=== PATIENT | male | born 1965 | race Caucasian/White ===

== ENCOUNTER → 2018-01-07 | Outpatient (CLI) | payer OTHER ==
[~2018-01-07] MED LIST: ASPI-496 PO; ATOR20TA9 PO; FEXO1TAB29 PO; VALS1TAB26 PO
== END | disposition home or self-care (01) ==
LOC: RAD 10:13
PROVIDERS: ATTEND Colon & Rectal Surgery
DX: C18.9 Malignant neoplasm of colon, unspecified (principal)
CPT/HCPCS: 71260; 74177

== ENCOUNTER → 2018-01-11 | Outpatient (CLI) | payer OTHER ==
[~2018-01-11] MED LIST changes: +FEXO180T72 PO
[2018-01-11 09:26] LABS: BASOPHILS # (AUTO) 0.02 x10^3/uL (0-0.1); BASOPHILS % (AUTO) 0 % (0-1); EOSINOPHILS # (AUTO) 0.25 x10^3/uL (0-0.4); EOSINOPHILS % (AUTO) 5 % (1-7); LYMPHOCYTES # (AUTO) 0.81 x10^3/uL (1-3.4); LYMPHOCYTES % (AUTO) 17 % (22-44); MD NO; MEAN CORPUSCULAR HEMOGLOBIN 31.9 pg (27.5-34.5); MEAN CORPUSCULAR HGB CONC 34.6 g/dL (33.2-36.2); MEAN CORPUSCULAR VOLUME 92.3 fL (81-97); MEAN PLATELET VOLUME 8.7 fL (7.4-10.4); MONOCYTES # (AUTO) 0.48 x10^3/uL (0.2-0.8); MONOCYTES % (AUTO) 10 % (2-9); NEUTROPHILS # (AUTO) 3.19 x10^3/uL (1.8-6.8); NEUTROPHILS % (AUTO) 67 % (42-75); PLATELET COUNT 275 x10^3/uL (130-400); RED BLOOD COUNT 4.91 x10^6/uL (4.38-5.82); RED CELL DISTRIBUTION WIDTH 12.2 % (9.4-14.8)
[2018-01-11 09:38] LABS: ALANINE AMINOTRANSFERASE 32 U/L (12-78); ALBUMIN 4.1 g/dL (3.4-5.0); ANION GAP 6 mmol/L (5-15); CALCIUM 9.1 mg/dL (8.5-10.1); CHLORIDE 99 mmol/L (98-107)
[2018-01-11 09:41] LABS: ALKALINE PHOSPHATASE 65 U/L (45-117); BILIRUBIN,TOTAL 1.7 mg/dL (0.2-1.0); CREATININE 1.13 mg/dL (0.7-1.3); TOTAL PROTEIN 7.4 g/dL (6.4-8.2)
== END | disposition home or self-care (01) ==
LOC: STAR 08:31
PROVIDERS: ATTEND Colon & Rectal Surgery
DX: Z01.818 Encounter for other preprocedural examination (principal)
CPT/HCPCS: 36415; 80053; 85025; 93005

== ENCOUNTER 2018-01-17 06:05 | Inpatient (IN) | payer OTHER ==
[~2018-01-17] VITALS: Ht 177.8 cm; Wt 88.7 kg
[2018-01-17] MEDS ORDERED: BUPIVACAINE/PF 0.5% ONE ×2 (06:44→08:28)
[2018-01-17] MEDS ORDERED: EPINEPHRINE 1 MG/ML, 1ML ONE (06:44)
[2018-01-17] MEDS ORDERED: INDOCYANINE GREEN 25 MG VIAL ONE (06:44)
[2018-01-17] MEDS ORDERED: FENTANYL PF 250 MCG/5ML ONE (06:56)
[2018-01-17] MEDS ORDERED: MIDAZOLAM 1 MG/ML, 2ML ONE (06:56)
[2018-01-17] MEDS ORDERED: PROPOFOL 10 MG/ML, 20ML ONE (06:57)
[2018-01-17] MEDS ORDERED: ROCURONIUM 10MG/ML,5ML ONE ×2 (06:57→08:30)
[2018-01-17] MEDS ORDERED: GABAPENTIN 300 MG CAPSULE PO ONE (07:00)
[2018-01-17] MEDS ORDERED: OxyconTIN ER 10 MG TAB.ER PO ONE (07:00)
[2018-01-17] MEDS ORDERED: FAMOTIDINE 20 MG TABLET PO ONE (07:00)
[2018-01-17] MEDS ORDERED: ACETAMINOPHEN 500 MG TABLET PO ONE (07:00)
[2018-01-17] MEDS ORDERED: LACTATED RINGERS 1,000 ML IV SCH ×2 (07:08→13:30)
[2018-01-17] MEDS ORDERED: CEFOTETAN 2 GM ONE (07:25)
[2018-01-17] MEDS ORDERED: BUPIVACAINE/PF-EPI 0.5% 1:200K INFIL ONE (08:17)
[2018-01-17] MEDS ORDERED: DEXAMETHASONE 4 MG/ML, 1ML ONE (08:30)
[2018-01-17] MEDS ORDERED: ONDANSETRON 2MG/ML, 2ML ONE (08:30)
[2018-01-17] MEDS ORDERED: GLYCOPYRROLATE 0.2MG/1ML, 5ML ONE (09:26)
[2018-01-17] MEDS ORDERED: NEOSTIGMINE 1 MG/ML, 10ML ONE (09:26)
[2018-01-17] MEDS ORDERED: PROMETHAZINE 12.5 MG SUPP PR PRN (09:30)
[2018-01-17] MEDS ORDERED: MEPERIDINE/PF 25MG/0.5ML IVPush PRN (09:30)
[2018-01-17] MEDS ORDERED: ONDANSETRON ODT 8 MG PO PRN (09:30)
[2018-01-17] MEDS ORDERED: LABETALOL 5MG/ML, 20ML IV PRN (09:30)
[2018-01-17] MEDS ORDERED: OXYcodone 5 MG/5 ML ORAL.SOL UDC PO PRN (09:30)
[2018-01-17] MEDS ORDERED: HYDROmorphone 1 MG/ML, 1ML IV PRN (09:30)
[2018-01-17] MEDS ORDERED: hydrALAzine 20 MG/ML, 1ML IV PRN (09:30)
[2018-01-17] MEDS ORDERED: FENTANYL PF 100 MCG/2ML ONE (09:51)
[2018-01-17] MEDS ORDERED: HYDROmorphone 2 MG/ML, 1ML ONE (09:51)
[2018-01-17] MEDS: FENTANYL PF 100 MCG/2ML IV PRN ×2 (09:55→10:00)
[2018-01-17] MEDS ORDERED: ONDANSETRON ODT 8 MG ONE (10:03)
[2018-01-17] MEDS ORDERED: OXYcodone IR 5MG TABLET ONE (13:20)
[2018-01-17] MEDS ORDERED: ONDANSETRON 2MG/ML, 2ML IVPush PRN (13:30)
[2018-01-17] MEDS ORDERED: ONDANSETRON 2MG/ML, 2ML IV PRN (13:30)
[2018-01-17 13:34] VITALS: BP 139/88
[2018-01-17] MEDS: ACETAMINOPHEN 500 MG TABLET PO SCH ×2 (13:45→19:45)
[2018-01-17] MEDS: KETOROLAC 30 MG/1 ML IV SCH ×2 (13:46→19:45)
[2018-01-17] MEDS ORDERED: DEXAMETHASONE 4 MG/ML, 1ML IVPush PRN (14:00)
[2018-01-17] MEDS ORDERED: MORPHINE SULFATE 4 MG/ML, 1ML IV PRN (14:00)
[2018-01-17] MEDS ORDERED: DIPHENHYDRAMINE 25 MG CAPSULE PO PRN (14:00)
[2018-01-17] MEDS ORDERED: DIPHENHYDRAMINE 50 MG/ML, 1ML IVPush PRN (14:00)
[2018-01-17] MEDS ORDERED: LORazepam 2 MG/ML, 1ML IVPush PRN (14:00)
[2018-01-17] MEDS: OXYcodone IR 5MG TABLET PO PRN (16:27)
[2018-01-17 19:36] VITALS: BP 116/73
[2018-01-18 00:39] VITALS: BP 139/62
[2018-01-18] MEDS: ACETAMINOPHEN 500 MG TABLET PO SCH ×4 (00:56→20:21)
[2018-01-18] MEDS: KETOROLAC 30 MG/1 ML IV SCH ×4 (00:57→20:19)
[2018-01-18 04:23] VITALS: BP 115/68
[2018-01-18 05:08] LABS: BASOPHILS # (AUTO) 0.01 x10^3/uL (0-0.1); BASOPHILS % (AUTO) 0 % (0-1); EOSINOPHILS # (AUTO) 0.07 x10^3/uL (0-0.4); EOSINOPHILS % (AUTO) 1 % (1-7); LYMPHOCYTES # (AUTO) 0.68 x10^3/uL (1-3.4); LYMPHOCYTES % (AUTO) 6 % (22-44); MD NO; MEAN CORPUSCULAR HGB CONC 34.3 g/dL (33.2-36.2); MEAN CORPUSCULAR VOLUME 93.1 fL (81-97); MEAN PLATELET VOLUME 8.6 fL (7.4-10.4); MONOCYTES # (AUTO) 1.15 x10^3/uL (0.2-0.8); MONOCYTES % (AUTO) 9 % (2-9); NEUTROPHILS # (AUTO) 10.28 x10^3/uL (1.8-6.8); NEUTROPHILS % (AUTO) 84 % (42-75); PLATELET COUNT 266 x10^3/uL (130-400); RED BLOOD COUNT 4.27 x10^6/uL (4.38-5.82); RED CELL DISTRIBUTION WIDTH 12.3 % (9.4-14.8)
[2018-01-18 05:11] LABS: ANION GAP 9 mmol/L (5-15); CALCIUM 8.4 mg/dL (8.5-10.1); CHLORIDE 89 mmol/L (98-107)
[2018-01-18 05:13] LABS: CREATININE 0.94 mg/dL (0.7-1.3)
[2018-01-18 06:49] VITALS: BP 114/68
[2018-01-18] MEDS: ENOXAPARIN 40 MG/0.4 ML SQ SCH (10:06)
[2018-01-18] MEDS: SODIUM CHLORIDE 0.9% 1,000 ML IV SCH (10:06)
[2018-01-18 13:06] LABS: ANION GAP 11 mmol/L (5-15); CALCIUM 7.9 mg/dL (8.5-10.1); CHLORIDE 84 mmol/L (98-107); CREATININE 1.21 mg/dL (0.7-1.3)
[2018-01-18 13:34] VITALS: BP 121/76
[2018-01-18] MEDS ORDERED: SODIUM CHLORIDE 3% 100 ML IV ONE (14:30)
[2018-01-19] MEDS: CALCIUM CARBONATE 500 MG TAB.CHEW PO PRN ×3 (00:09→20:37)
[2018-01-19] MEDS: ACETAMINOPHEN 500 MG TABLET PO SCH ×4 (02:01→20:48)
[2018-01-19] MEDS: KETOROLAC 30 MG/1 ML IV SCH ×3 (02:01→13:56)
[2018-01-19 04:25] LABS: BASOPHILS # (AUTO) 0.03 x10^3/uL (0-0.1); BASOPHILS % (AUTO) 0 % (0-1); EOSINOPHILS % (AUTO) 2 % (1-7); LYMPHOCYTES # (AUTO) 0.84 x10^3/uL (1-3.4); LYMPHOCYTES % (AUTO) 10 % (22-44); MD NO; MEAN CORPUSCULAR HGB CONC 34.5 g/dL (33.2-36.2); MEAN CORPUSCULAR VOLUME 92.9 fL (81-97); MEAN PLATELET VOLUME 8.6 fL (7.4-10.4); MONOCYTES # (AUTO) 0.77 x10^3/uL (0.2-0.8); MONOCYTES % (AUTO) 9 % (2-9); NEUTROPHILS # (AUTO) 6.47 x10^3/uL (1.8-6.8); NEUTROPHILS % (AUTO) 78 % (42-75); PLATELET COUNT 233 x10^3/uL (130-400); RED BLOOD COUNT 3.61 x10^6/uL (4.38-5.82); RED CELL DISTRIBUTION WIDTH 12.5 % (9.4-14.8)
[2018-01-19 04:30] LABS: ANION GAP 7 mmol/L (5-15); CALCIUM 8.2 mg/dL (8.5-10.1); CHLORIDE 93 mmol/L (98-107); CREATININE 0.93 mg/dL (0.7-1.3)
[2018-01-19] MEDS: SODIUM CHLORIDE 0.9% 1,000 ML IV SCH (05:05)
[2018-01-19] MEDS: ENOXAPARIN 40 MG/0.4 ML SQ SCH (09:17)
[2018-01-19 12:19] LABS: ANION GAP 5 mmol/L (5-15); CALCIUM 8.1 mg/dL (8.5-10.1); CHLORIDE 94 mmol/L (98-107)
[2018-01-19] MEDS: OXYcodone IR 5MG TABLET PO PRN ×3 (12:35→21:15)
[2018-01-19] MEDS ORDERED: OXYC-302 PO ×2 (14:50→14:51)
[2018-01-19] MEDS ORDERED: SODIUM CHLORIDE 0.9% 1,000ML IVBOLUS ONE (17:30)
[2018-01-19 18:07] LABS: BASOPHILS # (AUTO) 0.02 x10^3/uL (0-0.1); BASOPHILS % (AUTO) 0 % (0-1); EOSINOPHILS # (AUTO) 0.11 x10^3/uL (0-0.4); EOSINOPHILS % (AUTO) 1 % (1-7); LYMPHOCYTES # (AUTO) 0.61 x10^3/uL (1-3.4); LYMPHOCYTES % (AUTO) 5 % (22-44); MD NO; MEAN CORPUSCULAR HEMOGLOBIN 32.8 pg (27.5-34.5); MEAN CORPUSCULAR HGB CONC 34.9 g/dL (33.2-36.2); MEAN CORPUSCULAR VOLUME 93.9 fL (81-97); MEAN PLATELET VOLUME 8.6 fL (7.4-10.4); MONOCYTES # (AUTO) 1.01 x10^3/uL (0.2-0.8); MONOCYTES % (AUTO) 8 % (2-9); NEUTROPHILS # (AUTO) 10.85 x10^3/uL (1.8-6.8); NEUTROPHILS % (AUTO) 86 % (42-75); PLATELET COUNT 242 x10^3/uL (130-400); RED BLOOD COUNT 3.21 x10^6/uL (4.38-5.82); RED CELL DISTRIBUTION WIDTH 12.4 % (9.4-14.8)
[2018-01-20] MEDS: SODIUM CHLORIDE FLUSH 10ML SYR IVF SCH ×3 (00:01→22:04)
[2018-01-20] MEDS: ACETAMINOPHEN 500 MG TABLET PO SCH ×4 (01:00→22:03)
[2018-01-20] MEDS: CALCIUM CARBONATE 500 MG TAB.CHEW PO PRN (02:15)
[2018-01-20 04:24] LABS: BASOPHILS # (AUTO) 0.03 x10^3/uL (0-0.1); BASOPHILS % (AUTO) 0 % (0-1); EOSINOPHILS # (AUTO) 0.12 x10^3/uL (0-0.4); EOSINOPHILS % (AUTO) 2 % (1-7); LYMPHOCYTES # (AUTO) 0.73 x10^3/uL (1-3.4); LYMPHOCYTES % (AUTO) 9 % (22-44); MD NO; MEAN CORPUSCULAR HEMOGLOBIN 32.5 pg (27.5-34.5); MEAN CORPUSCULAR HGB CONC 34.5 g/dL (33.2-36.2); MEAN CORPUSCULAR VOLUME 94.2 fL (81-97); MEAN PLATELET VOLUME 8.5 fL (7.4-10.4); MONOCYTES % (AUTO) 13 % (2-9); NEUTROPHILS # (AUTO) 5.93 x10^3/uL (1.8-6.8); NEUTROPHILS % (AUTO) 76 % (42-75); PLATELET COUNT 226 x10^3/uL (130-400); RED BLOOD COUNT 2.62 x10^6/uL (4.38-5.82); RED CELL DISTRIBUTION WIDTH 12.6 % (9.4-14.8)
[2018-01-20 08:42] LABS: ANION GAP 5 mmol/L (5-15); CALCIUM 7.8 mg/dL (8.5-10.1); CHLORIDE 95 mmol/L (98-107); CREATININE 0.85 mg/dL (0.7-1.3)
[2018-01-20 09:23] VITALS: BP 130/73
[2018-01-20 09:40] VITALS: BP 125/74
[2018-01-20] MEDS ORDERED: PROPOFOL 100 ML IV ONE (10:15)
[2018-01-20] MEDS ORDERED: NOREPINEPHRINE 1 MG/ML, 4ML ONE (10:19)
[2018-01-20] MEDS ORDERED: MIDAZOLAM 1 MG/ML, 2ML IVPush ONE (10:30)
[2018-01-20] MEDS ORDERED: LORazepam 2 MG/ML, 1ML IVPush ONE (10:30)
[2018-01-20] MEDS ORDERED: NOREPINEPHRINE 4 MG in SODIUM CHLORIDE 0.9% 246 ML IV PRN ×2 (10:30→11:21)
[2018-01-20 11:23] LABS: BASOPHILS % (AUTO) 0 % (0-1); EOSINOPHILS # (AUTO) 0.05 x10^3/uL (0-0.4); EOSINOPHILS % (AUTO) 1 % (1-7); LYMPHOCYTES # (AUTO) 0.66 x10^3/uL (1-3.4); LYMPHOCYTES % (AUTO) 8 % (22-44); MD NO; MEAN CORPUSCULAR HEMOGLOBIN 32.2 pg (27.5-34.5); MEAN CORPUSCULAR HGB CONC 34.3 g/dL (33.2-36.2); MEAN CORPUSCULAR VOLUME 93.8 fL (81-97); MEAN PLATELET VOLUME 8.5 fL (7.4-10.4); MONOCYTES # (AUTO) 0.33 x10^3/uL (0.2-0.8); MONOCYTES % (AUTO) 4 % (2-9); NEUTROPHILS # (AUTO) 7.68 x10^3/uL (1.8-6.8); NEUTROPHILS % (AUTO) 88 % (42-75); PLATELET COUNT 231 x10^3/uL (130-400); RED BLOOD COUNT 2.65 x10^6/uL (4.38-5.82); RED CELL DISTRIBUTION WIDTH 12.9 % (9.4-14.8)
[2018-01-20] MEDS ORDERED: SENNA/DOCUSATE TABLET NG PRN (11:30)
[2018-01-20] MEDS ORDERED: SODIUM CHLORIDE 0.9% 1,000ML IV SCH (11:30)
[2018-01-20] MEDS ORDERED: SENNOSIDES 8.8 MG/5 ML ORAL SOL NG PRN (11:30)
[2018-01-20] MEDS ORDERED: LACTULOSE 20 GM/30 ML UDC NG PRN (11:30)
[2018-01-20] MEDS ORDERED: FENTANYL PF 100 MCG/2ML IVPush PRN (11:30)
[2018-01-20] MEDS ORDERED: LIDOCAINE-MPF 1%, 2ML ENDO PRN (11:30)
[2018-01-20] MEDS ORDERED: ALBUTEROL/IPRATROPIUM 2.5MG/0.5MG, 3 ML INLINE SCH (11:30)
[2018-01-20] MEDS ORDERED: PHARMACY MAY ADJ FOR RENAL FX MC SCH (11:30)
[2018-01-20] MEDS ORDERED: BISACODYL 10 MG SUPP PR PRN (11:30)
[2018-01-20] MEDS ORDERED: MIDAZOLAM 1 MG/ML, 2ML IVPush PRN (11:30)
[2018-01-20 11:32] LABS: INTERNATIONAL NORMALIZED RATIO 1.16 (0.93-1.1)
[2018-01-20 11:37] LABS: ANION GAP 12 mmol/L (5-15); CALCIUM 7.6 mg/dL (8.5-10.1); CHLORIDE 96 mmol/L (98-107); CREATININE 0.98 mg/dL (0.7-1.3)
[2018-01-20 11:38] LABS: ALANINE AMINOTRANSFERASE 38 U/L (12-78); ALBUMIN 2.6 g/dL (3.4-5.0)
[2018-01-20 11:41] LABS: ALKALINE PHOSPHATASE 45 U/L (45-117); BILIRUBIN,TOTAL 1.3 mg/dL (0.2-1.0)
[2018-01-20 12:10] LABS: MEAN CORPUSCULAR HEMOGLOBIN 32.2 pg (27.5-34.5); MEAN CORPUSCULAR HGB CONC 34.8 g/dL (33.2-36.2); MEAN CORPUSCULAR VOLUME 92.7 fL (81-97); MEAN PLATELET VOLUME 8.8 fL (7.4-10.4); PLATELET COUNT 234 x10^3/uL (130-400); RED BLOOD COUNT 2.71 x10^6/uL (4.38-5.82); RED CELL DISTRIBUTION WIDTH 12.6 % (9.4-14.8)
[2018-01-20] MEDS ORDERED: POTASSIUM CHLORIDE 10% 40 MEQ/30 ML UDC PO ONE (12:30)
[2018-01-20] MEDS: SODIUM CHLORIDE 0.9% 1,000 ML IV SCH (14:39)
[2018-01-20] MEDS: PANTOPRAZOLE 40 MG IV IV SCH (14:54)
[2018-01-20] MEDS ORDERED: ROCURONIUM 10MG/ML,5ML ONE (16:21)
[2018-01-20] MEDS ORDERED: MIDAZOLAM 1 MG/ML, 5ML ONE (16:21)
[2018-01-20 17:25] LABS: MEAN CORPUSCULAR HEMOGLOBIN 32.7 pg (27.5-34.5); MEAN CORPUSCULAR HGB CONC 35.1 g/dL (33.2-36.2); MEAN CORPUSCULAR VOLUME 93.2 fL (81-97); MEAN PLATELET VOLUME 8.6 fL (7.4-10.4); PLATELET COUNT 229 x10^3/uL (130-400); RED BLOOD COUNT 2.58 x10^6/uL (4.38-5.82); RED CELL DISTRIBUTION WIDTH 12.6 % (9.4-14.8)
[2018-01-20] MEDS: PROPOFOL 100 ML IV PRN (17:43)
[2018-01-20 20:53] LABS: MEAN CORPUSCULAR HGB CONC 34.2 g/dL (33.2-36.2); MEAN CORPUSCULAR VOLUME 93.5 fL (81-97); MEAN PLATELET VOLUME 8.7 fL (7.4-10.4); PLATELET COUNT 230 x10^3/uL (130-400); RED BLOOD COUNT 2.51 x10^6/uL (4.38-5.82); RED CELL DISTRIBUTION WIDTH 12.9 % (9.4-14.8)
[2018-01-20] MEDS: OXYcodone IR 5MG TABLET PO PRN (22:04)
[2018-01-20] MEDS ORDERED: ACETAMINOPHEN 500 MG TABLET PO PRN (23:30)
[2018-01-21] VITALS (11 sets, daily range): BP systolic 132–159; BP diastolic 80–100
[2018-01-21 00:45] LABS: MEAN CORPUSCULAR HEMOGLOBIN 33.3 pg (27.5-34.5); MEAN CORPUSCULAR HGB CONC 35.1 g/dL (33.2-36.2); MEAN CORPUSCULAR VOLUME 94.8 fL (81-97); MEAN PLATELET VOLUME 8.8 fL (7.4-10.4); PLATELET COUNT 215 x10^3/uL (130-400); RED BLOOD COUNT 2.41 x10^6/uL (4.38-5.82); RED CELL DISTRIBUTION WIDTH 12.8 % (9.4-14.8)
[2018-01-21] MEDS: PROPOFOL 100 ML IV PRN (00:58)
[2018-01-21] MEDS: OXYcodone IR 5MG TABLET PO PRN ×3 (01:15→16:39)
[2018-01-21 03:55] LABS: MEAN CORPUSCULAR HEMOGLOBIN 32.4 pg (27.5-34.5); MEAN CORPUSCULAR HGB CONC 34.4 g/dL (33.2-36.2); MEAN CORPUSCULAR VOLUME 94.3 fL (81-97); MEAN PLATELET VOLUME 8.8 fL (7.4-10.4); PLATELET COUNT 201 x10^3/uL (130-400); RED BLOOD COUNT 2.28 x10^6/uL (4.38-5.82); RED CELL DISTRIBUTION WIDTH 12.8 % (9.4-14.8)
[2018-01-21] MEDS: SODIUM CHLORIDE 0.9% 1,000 ML IV SCH ×2 (03:59→16:41)
[2018-01-21 04:05] LABS: ALBUMIN 2.5 g/dL (3.4-5.0); ANION GAP 4 mmol/L (5-15); BASOPHILS # (AUTO) 0.03 x10^3/uL (0-0.1); BASOPHILS % (AUTO) 0 % (0-1); CALCIUM 7.6 mg/dL (8.5-10.1); CHLORIDE 100 mmol/L (98-107); EOSINOPHILS % (AUTO) 4 % (1-7); LYMPHOCYTES # (AUTO) 0.75 x10^3/uL (1-3.4); LYMPHOCYTES % (AUTO) 9 % (22-44); MD SCAN; MONOCYTES # (AUTO) 0.75 x10^3/uL (0.2-0.8); MONOCYTES % (AUTO) 9 % (2-9); NEUTROPHILS # (AUTO) 6.25 x10^3/uL (1.8-6.8); NEUTROPHILS % (AUTO) 77 % (42-75)
[2018-01-21 04:08] LABS: ALANINE AMINOTRANSFERASE 69 U/L (12-78); ALKALINE PHOSPHATASE 49 U/L (45-117); BILIRUBIN,TOTAL 1.1 mg/dL (0.2-1.0); CREATININE 0.86 mg/dL (0.7-1.3)
[2018-01-21] MEDS: LORazepam 1MG TABLET PO PRN (05:15)
[2018-01-21] MEDS: SODIUM CHLORIDE FLUSH 10ML SYR IVF SCH ×2 (08:43→21:40)
[2018-01-21] MEDS: PANTOPRAZOLE 40 MG IV IV SCH (08:47)
[2018-01-21] MEDS ORDERED: HYDROCORTISONE 100 MG INJ. IVPush ONE (09:00)
[2018-01-21] MEDS ORDERED: ACETAMINOPHEN 325 MG TABLET PO ONE (09:00)
[2018-01-21] MEDS ORDERED: DIPHENHYDRAMINE 50 MG/ML, 1ML IVPush ONE (09:00)
[2018-01-21] MEDS: ACETAMINOPHEN 500 MG TABLET PO PRN (21:40)
[2018-01-21 21:53] LABS: BASOPHILS # (AUTO) 0.02 x10^3/uL (0-0.1); BASOPHILS % (AUTO) 0 % (0-1); EOSINOPHILS # (AUTO) 0.14 x10^3/uL (0-0.4); EOSINOPHILS % (AUTO) 2 % (1-7); LYMPHOCYTES # (AUTO) 0.64 x10^3/uL (1-3.4); LYMPHOCYTES % (AUTO) 7 % (22-44); MD NO; MEAN CORPUSCULAR HEMOGLOBIN 31.8 pg (27.5-34.5); MEAN CORPUSCULAR HGB CONC 35.4 g/dL (33.2-36.2); MEAN PLATELET VOLUME 8.6 fL (7.4-10.4); MONOCYTES # (AUTO) 0.98 x10^3/uL (0.2-0.8); MONOCYTES % (AUTO) 10 % (2-9); NEUTROPHILS # (AUTO) 7.78 x10^3/uL (1.8-6.8); NEUTROPHILS % (AUTO) 81 % (42-75); PLATELET COUNT 233 x10^3/uL (130-400); RED BLOOD COUNT 2.92 x10^6/uL (4.38-5.82); RED CELL DISTRIBUTION WIDTH 14.8 % (9.4-14.8)
[2018-01-22] MEDS: ACETAMINOPHEN 500 MG TABLET PO PRN ×2 (04:04→18:27)
[2018-01-22 04:28] LABS: ANION GAP 5 mmol/L (5-15); CALCIUM 7.8 mg/dL (8.5-10.1); CHLORIDE 104 mmol/L (98-107); CREATININE 0.76 mg/dL (0.7-1.3)
[2018-01-22 04:30] LABS: BASOPHILS # (AUTO) 0.03 x10^3/uL (0-0.1); BASOPHILS % (AUTO) 0 % (0-1); EOSINOPHILS # (AUTO) 0.18 x10^3/uL (0-0.4); EOSINOPHILS % (AUTO) 2 % (1-7); LYMPHOCYTES % (AUTO) 9 % (22-44); MD NO; MEAN CORPUSCULAR HEMOGLOBIN 31.8 pg (27.5-34.5); MEAN CORPUSCULAR HGB CONC 34.8 g/dL (33.2-36.2); MEAN CORPUSCULAR VOLUME 91.3 fL (81-97); MEAN PLATELET VOLUME 8.4 fL (7.4-10.4); MONOCYTES # (AUTO) 0.75 x10^3/uL (0.2-0.8); MONOCYTES % (AUTO) 10 % (2-9); NEUTROPHILS # (AUTO) 6.08 x10^3/uL (1.8-6.8); NEUTROPHILS % (AUTO) 79 % (42-75); PLATELET COUNT 201 x10^3/uL (130-400); RED BLOOD COUNT 2.73 x10^6/uL (4.38-5.82); RED CELL DISTRIBUTION WIDTH 14.8 % (9.4-14.8)
[2018-01-22] MEDS: SODIUM CHLORIDE 0.9% 1,000 ML IV SCH (06:00)
[2018-01-22] MEDS: SODIUM CHLORIDE FLUSH 10ML SYR IVF SCH ×2 (09:00→22:55)
[2018-01-22] MEDS: PANTOPRAZOLE 40 MG IV IV SCH (09:00)
[2018-01-22 10:20] LABS: ALBUMIN 2.4 g/dL (3.4-5.0); BILIRUBIN, DIRECT 0.5 mg/dL (0.1-0.2)
[2018-01-22 10:22] LABS: BILIRUBIN,INDIRECT 1.3 mg/dL (0.0-2.0); BILIRUBIN,TOTAL 1.8 mg/dL (0.2-1.0); TOTAL PROTEIN 5.2 g/dL (6.4-8.2)
[2018-01-22 12:33] VITALS: BP 142/86
[2018-01-22 13:10] VITALS: BP 152/83
[2018-01-22 19:32] VITALS: BP 142/80
[2018-01-23] MEDS: ACETAMINOPHEN 500 MG TABLET PO PRN ×4 (00:48→20:52)
[2018-01-23 01:40] VITALS: BP 149/81
[2018-01-23 06:04] LABS: BASOPHILS # (AUTO) 0.02 x10^3/uL (0-0.1); BASOPHILS % (AUTO) 0 % (0-1); EOSINOPHILS # (AUTO) 0.26 x10^3/uL (0-0.4); EOSINOPHILS % (AUTO) 3 % (1-7); LYMPHOCYTES % (AUTO) 9 % (22-44); MD NO; MEAN CORPUSCULAR HEMOGLOBIN 31.3 pg (27.5-34.5); MEAN CORPUSCULAR HGB CONC 34.5 g/dL (33.2-36.2); MEAN CORPUSCULAR VOLUME 90.9 fL (81-97); MEAN PLATELET VOLUME 8.3 fL (7.4-10.4); MONOCYTES # (AUTO) 0.93 x10^3/uL (0.2-0.8); MONOCYTES % (AUTO) 11 % (2-9); NEUTROPHILS # (AUTO) 6.35 x10^3/uL (1.8-6.8); NEUTROPHILS % (AUTO) 77 % (42-75); PLATELET COUNT 231 x10^3/uL (130-400); RED BLOOD COUNT 2.73 x10^6/uL (4.38-5.82); RED CELL DISTRIBUTION WIDTH 14.8 % (9.4-14.8)
[2018-01-23 06:24] LABS: ANION GAP 8 mmol/L (5-15); CALCIUM 8.3 mg/dL (8.5-10.1); CHLORIDE 102 mmol/L (98-107); CREATININE 0.81 mg/dL (0.7-1.3)
[2018-01-23 06:55] VITALS: BP 142/88
[2018-01-23] MEDS: SODIUM CHLORIDE FLUSH 10ML SYR IVF SCH ×2 (09:00→21:00)
[2018-01-23] MEDS: PANTOPRAZOLE 40 MG IV IV SCH (09:00)
[2018-01-23 12:40] VITALS: BP 146/84
[2018-01-23] MEDS: FERROUS SULFATE 325 MG TABLET PO SCH ×2 (14:27→17:35)
[2018-01-23 19:02] VITALS: BP 143/87
[2018-01-23] MEDS: LORazepam 1MG TABLET PO PRN (20:52)
[2018-01-24 00:54] VITALS: BP 136/85
[2018-01-24 05:08] LABS: BASOPHILS # (AUTO) 0.07 x10^3/uL (0-0.1); BASOPHILS % (AUTO) 1 % (0-1); EOSINOPHILS # (AUTO) 0.41 x10^3/uL (0-0.4); EOSINOPHILS % (AUTO) 5 % (1-7); LYMPHOCYTES # (AUTO) 0.76 x10^3/uL (1-3.4); LYMPHOCYTES % (AUTO) 9 % (22-44); MD NO; MEAN CORPUSCULAR HEMOGLOBIN 31.9 pg (27.5-34.5); MEAN CORPUSCULAR HGB CONC 34.6 g/dL (33.2-36.2); MEAN CORPUSCULAR VOLUME 92.3 fL (81-97); MONOCYTES # (AUTO) 0.88 x10^3/uL (0.2-0.8); MONOCYTES % (AUTO) 11 % (2-9); NEUTROPHILS # (AUTO) 5.96 x10^3/uL (1.8-6.8); NEUTROPHILS % (AUTO) 74 % (42-75); PLATELET COUNT 293 x10^3/uL (130-400); RED BLOOD COUNT 2.86 x10^6/uL (4.38-5.82); RED CELL DISTRIBUTION WIDTH 14.5 % (9.4-14.8)
[2018-01-24 05:15] LABS: ANION GAP 7 mmol/L (5-15); CALCIUM 8.4 mg/dL (8.5-10.1); CHLORIDE 102 mmol/L (98-107); CREATININE 0.84 mg/dL (0.7-1.3)
[2018-01-24] MEDS: ACETAMINOPHEN 500 MG TABLET PO PRN (05:35)
[2018-01-24 06:30] VITALS: BP 142/80
[2018-01-24 08:10] VITALS: BP 142/80
[2018-01-24] MEDS: FERROUS SULFATE 325 MG TABLET PO SCH (08:33)
[2018-01-24] MEDS: SODIUM CHLORIDE FLUSH 10ML SYR IVF SCH (08:33)
[2018-01-24] MEDS: PANTOPRAZOLE 40 MG IV IV SCH (09:00)
== END 2018-01-24 10:48 | disposition home or self-care (01) | DRG 374 ==
LOC: ORIP 06:05 → 4NOR 11:33 → CCU 01-18 16:46 → 4NOR 01-20 17:01 → CCU 01-20 17:10 → 4NOR 01-22 12:30 → DCLOUNGE 01-24 10:40
PROVIDERS: ADMIT Colon & Rectal Surgery; ATTEND Colon & Rectal Surgery
PROC: 8E0W4CZ Robotic Assisted Procedure of Trunk Region, Percutaneous Endoscopic Approach (ICD-10-PCS; 2018-01-17)
PROC: 0DBN4ZX Excision of Sigmoid Colon, Percutaneous Endoscopic Approach, Diagnostic (ICD-10-PCS; principal; 2018-01-17 07:30)
PROC: 30233N1 Transfusion of Nonautologous Red Blood Cells into Peripheral Vein, Percutaneous Approach (ICD-10-PCS; 2018-01-20)
PROC: 02HV33Z Insertion of Infusion Device into Superior Vena Cava, Percutaneous Approach (ICD-10-PCS; 2018-01-20)
DX: C18.7 Malignant neoplasm of sigmoid colon (principal); J96.01 Acute respiratory failure with hypoxia; E87.1 Hypo-osmolality and hyponatremia; J98.11 Atelectasis; D50.0 Iron deficiency anemia secondary to blood loss (chronic); E78.00 Pure hypercholesterolemia, unspecified; I10 Essential (primary) hypertension; R56.9 Unspecified convulsions; I95.9 Hypotension, unspecified; S30.1XXA Contusion of abdominal wall, initial encounter; Z85.048 Personal history of other malignant neoplasm of rectum, rectosigmoid junction, and anus
CPT/HCPCS: 36415; 36600; J3490; S0074; 70553; 71045; 74176; 80048; 80053; 80076; 82803; 83735; 84100; 84146; 84295; 84478; 85025; 85027; 85610; 86078; 86850; 86900; 86923; 87070; 87081; 87205; 88309; 94002; 94003; 94150; 95819; C1729; J0171; J1100; J1170; J1650; J1885; J2250; J2405; J2704; J2710; J3010; Q0162; C9113; J1200; J1720; J2060; J7030; J7120; P9016

== ENCOUNTER 2018-01-28 17:37 | Inpatient (IN) | payer OTHER ==
[~2018-01-28] VITALS: Ht 175.3 cm; Wt 88.0 kg
[~2018-01-28 17:37] MED LIST changes: -ACET325T14 PO; -OMNIPAQUE 350 MG/ML, 100ML BOTTLE ONE
[2018-01-28] MEDS ORDERED: SODIUM CHLORIDE 0.9% 1,000ML IVBOLUS ONE (18:00)
[2018-01-28] MEDS ORDERED: SODIUM CHLORIDE FLUSH 10ML SYR IVF ONE (18:00)
[2018-01-28] MEDS ORDERED: ONDANSETRON 2MG/ML, 2ML IVPush ONE (18:00)
[2018-01-28 18:39] LABS: ALANINE AMINOTRANSFERASE 97 U/L (12-78); ALBUMIN 3.4 g/dL (3.4-5.0); ANION GAP 11 mmol/L (5-15); CALCIUM 9.1 mg/dL (8.5-10.1); CHLORIDE 90 mmol/L (98-107); CREATININE 1.01 mg/dL (0.7-1.3)
[2018-01-28 18:41] LABS: ALKALINE PHOSPHATASE 158 U/L (45-117); BILIRUBIN,TOTAL 2.8 mg/dL (0.2-1.0); MEAN CORPUSCULAR HEMOGLOBIN 31.5 pg (27.5-34.5); MEAN CORPUSCULAR HGB CONC 34.1 g/dL (33.2-36.2); MEAN CORPUSCULAR VOLUME 92.6 fL (81-97); MEAN PLATELET VOLUME 7.3 fL (7.4-10.4); PLATELET COUNT 614 x10^3/uL (130-400); RED BLOOD COUNT 3.65 x10^6/uL (4.38-5.82); RED CELL DISTRIBUTION WIDTH 14.8 % (9.4-14.8); TOTAL PROTEIN 7.4 g/dL (6.4-8.2)
[2018-01-28 19:05] LABS: BASOPHILS # (AUTO) 0.05 x10^3/uL (0-0.1); BASOPHILS % (AUTO) 0 % (0-1); EOSINOPHILS # (AUTO) 0.03 x10^3/uL (0-0.4); EOSINOPHILS % (AUTO) 0 % (1-7); LYMPHOCYTES # (AUTO) 0.51 x10^3/uL (1-3.4); LYMPHOCYTES % (AUTO) 2 % (22-44); MD SCAN; MONOCYTES # (AUTO) 0.56 x10^3/uL (0.2-0.8); MONOCYTES % (AUTO) 2 % (2-9); NEUTROPHILS # (AUTO) 24.59 x10^3/uL (1.8-6.8); NEUTROPHILS % (AUTO) 96 % (42-75)
[2018-01-28] MEDS ORDERED: ONDANSETRON 2MG/ML, 2ML ONE ×2 (19:20→21:47)
[2018-01-28] MEDS ORDERED: MORPHINE SULFATE 4 MG/ML, 1ML ONE ×2 (19:21→20:57)
[2018-01-28] MEDS: MORPHINE SULFATE 4 MG/ML, 1ML IVPush PRN ×2 (19:22→21:00)
[2018-01-28] MEDS ORDERED: ACET325T14 PO (19:27)
[2018-01-28 19:48] LABS: MICROSCOPIC NOT IND
[2018-01-28 19:54] LABS: CULTURE INDICATED? NO
[2018-01-28] MEDS ORDERED: POTASSIUM CHLORIDE 20 MEQ in SODIUM CHLORIDE 0.9% 1,000 ML IV ONE (21:36)
[2018-01-28] MEDS ORDERED: KETOROLAC 30 MG/1 ML ONE (21:47)
[2018-01-28] MEDS ORDERED: NS + 20MEQ KCL 1,000 ML IV ONE (21:49)
[2018-01-28] MEDS ORDERED: DICYCLOMINE 10 MG/ML, 2ML ONE (21:49)
[2018-01-28] MEDS ORDERED: HYDROmorphone 2 MG/ML, 1ML ONE (21:49)
[2018-01-28] MEDS ORDERED: DICYCLOMINE 10 MG/ML, 2ML IM ONE (22:00)
[2018-01-28] MEDS ORDERED: KETOROLAC 30 MG/1 ML IVPush ONE (22:00)
[2018-01-28] MEDS ORDERED: HYDROmorphone 1 MG/ML, 1ML IV ONE (22:00)
[2018-01-28] MEDS ORDERED: MORPHINE SULFATE 4 MG/ML, 1ML IVPush PRN (22:00)
[2018-01-28] MEDS ORDERED: ONDANSETRON 2MG/ML, 2ML IVPush PRN (22:00)
[2018-01-28] MEDS ORDERED: SODIUM CHLORIDE 0.9% 1,000 ML IV ONE (23:00)
[2018-01-28 23:41] LABS: ALBUMIN 3.1 g/dL (3.4-5.0); ANION GAP 10 mmol/L (5-15); CALCIUM 8.6 mg/dL (8.5-10.1); CHLORIDE 94 mmol/L (98-107); CREATININE 1.01 mg/dL (0.7-1.3)
[2018-01-28 23:53] LABS: CHOL/HDL RATIO 3.2; LDL/HDL RATIO 1.8 (0.5-3.0); THYROID STIMULATING HORMONE 1.83 mIU/L (0.358-3.740)
[2018-01-29 00:15] VITALS: BP 134/76
[2018-01-29] MEDS: MEROPENEM 500 MG in SODIUM CHLORIDE 0.9% 100 ML IV SCH ×2 (00:40→08:07)
[2018-01-29] MEDS ORDERED: HYDROmorphone 2 MG/ML, 1ML IM PRN (01:30)
[2018-01-29 01:58] LABS: CHLORIDE,URINE RANDOM 17 mmol/L; POTASSIUM,URINE RANDOM 72 mmol/L; SODIUM,URINE RANDOM 15 mmol/L
[2018-01-29] MEDS: ACETAMINOPHEN 325 MG TABLET PO PRN ×5 (02:16→21:01)
[2018-01-29] MEDS: HYDROmorphone 2 MG/ML, 1ML IV PRN ×2 (02:20→18:37)
[2018-01-29 02:46] LABS: OSMOLALITY,URINE 686 mOsm/kg (500-850)
[2018-01-29 02:55] LABS: MEAN CORPUSCULAR HEMOGLOBIN 31.6 pg (27.5-34.5); MEAN CORPUSCULAR HGB CONC 34.2 g/dL (33.2-36.2); MEAN CORPUSCULAR VOLUME 92.5 fL (81-97); MEAN PLATELET VOLUME 6.7 fL (7.4-10.4); PLATELET COUNT 492 x10^3/uL (130-400); RED BLOOD COUNT 3.15 x10^6/uL (4.38-5.82); RED CELL DISTRIBUTION WIDTH 14.4 % (9.4-14.8)
[2018-01-29 03:01] LABS: ALBUMIN 2.9 g/dL (3.4-5.0); ANION GAP 9 mmol/L (5-15); CALCIUM 8.5 mg/dL (8.5-10.1); CHLORIDE 95 mmol/L (98-107); CREATININE 0.97 mg/dL (0.7-1.3)
[2018-01-29 03:16] LABS: BASOPHILS # (AUTO) 0.01 x10^3/uL (0-0.1); BASOPHILS % (AUTO) 0 % (0-1); EOSINOPHILS # (AUTO) 0.08 x10^3/uL (0-0.4); EOSINOPHILS % (AUTO) 0 % (1-7); LYMPHOCYTES # (AUTO) 0.52 x10^3/uL (1-3.4); LYMPHOCYTES % (AUTO) 3 % (22-44); MD SCAN; MONOCYTES # (AUTO) 0.94 x10^3/uL (0.2-0.8); MONOCYTES % (AUTO) 5 % (2-9); NEUTROPHILS # (AUTO) 17.25 x10^3/uL (1.8-6.8); NEUTROPHILS % (AUTO) 92 % (42-75)
[2018-01-29 04:00] VITALS: BP 118/65
[2018-01-29 07:03] LABS: ALBUMIN 2.8 g/dL (3.4-5.0); ANION GAP 8 mmol/L (5-15); CALCIUM 8.8 mg/dL (8.5-10.1); CHLORIDE 96 mmol/L (98-107); CREATININE 1.04 mg/dL (0.7-1.3)
[2018-01-29 11:06] VITALS: BP 135/82
[2018-01-29 13:24] VITALS: BP 141/85
[2018-01-29] MEDS ORDERED: CEFTRIAXONE 1,000 MG in SODIUM CHLORIDE 0.9% 50 ML IV SCH (15:30)
[2018-01-29] MEDS: METRONIDAZOLE PMX 500MG/100ML 100 ML IV SCH ×2 (16:24→23:28)
[2018-01-29 16:26] LABS: CLOSTRIDIUM DIFFICILE ANTIGEN POSITIVE; CLOSTRIDIUM DIFFICILE TOXIN POSITIVE (Negative)
[2018-01-29] MEDS: ENOXAPARIN 40 MG/0.4 ML SQ SCH (19:58)
[2018-01-29 20:30] VITALS: BP 130/73
[2018-01-30] MEDS: HYDROmorphone 2 MG/ML, 1ML IV PRN ×3 (00:56→23:25)
[2018-01-30] MEDS: ACETAMINOPHEN 325 MG TABLET PO PRN ×3 (03:39→15:50)
[2018-01-30 03:41] VITALS: BP 136/82
[2018-01-30 05:56] LABS: MEAN CORPUSCULAR HEMOGLOBIN 31.4 pg (27.5-34.5); MEAN CORPUSCULAR HGB CONC 33.9 g/dL (33.2-36.2); MEAN CORPUSCULAR VOLUME 92.8 fL (81-97); MEAN PLATELET VOLUME 7.5 fL (7.4-10.4); PLATELET COUNT 494 x10^3/uL (130-400); RED BLOOD COUNT 3.14 x10^6/uL (4.38-5.82); RED CELL DISTRIBUTION WIDTH 14.6 % (9.4-14.8)
[2018-01-30 06:07] LABS: ANION GAP 9 mmol/L (5-15); CHLORIDE 96 mmol/L (98-107)
[2018-01-30 06:08] LABS: CREATININE 0.94 mg/dL (0.7-1.3)
[2018-01-30 06:30] LABS: BASOPHILS % (AUTO) 0 % (0-1); EOSINOPHILS % (AUTO) 1 % (1-7); LYMPHOCYTES # (AUTO) 0.48 x10^3/uL (1-3.4); LYMPHOCYTES % (AUTO) 3 % (22-44); MD SCAN; MONOCYTES # (AUTO) 1.05 x10^3/uL (0.2-0.8); MONOCYTES % (AUTO) 5 % (2-9); NEUTROPHILS # (AUTO) 17.69 x10^3/uL (1.8-6.8); NEUTROPHILS % (AUTO) 92 % (42-75)
[2018-01-30 06:40] VITALS: BP 133/81
[2018-01-30] MEDS: SODIUM CHLORIDE 0.9% 1,000 ML IV SCH ×3 (07:30→23:25)
[2018-01-30] MEDS: ONDANSETRON 2MG/ML, 2ML IVPush PRN (07:56)
[2018-01-30] MEDS: VANCOMYCIN 50 MG/ML ORAL SUSP PO SCH ×3 (08:11→20:09)
[2018-01-30] MEDS: METRONIDAZOLE PMX 500MG/100ML 100 ML IV SCH ×3 (08:11→23:25)
[2018-01-30] MEDS: LACTOBACILLUS CHEW TABLET PO SCH ×3 (11:34→20:09)
[2018-01-30 19:43] VITALS: BP 151/85
[2018-01-30] MEDS: ENOXAPARIN 40 MG/0.4 ML SQ SCH (20:09)
[2018-01-31 02:06] VITALS: BP 135/88
[2018-01-31] MEDS: VANCOMYCIN 50 MG/ML ORAL SUSP PO SCH ×4 (02:40→21:21)
[2018-01-31] MEDS: ACETAMINOPHEN 325 MG TABLET PO PRN ×4 (02:44→21:21)
[2018-01-31 05:25] LABS: BASOPHILS # (AUTO) 0.02 x10^3/uL (0-0.1); BASOPHILS % (AUTO) 0 % (0-1); EOSINOPHILS # (AUTO) 0.14 x10^3/uL (0-0.4); EOSINOPHILS % (AUTO) 1 % (1-7); LYMPHOCYTES # (AUTO) 0.46 x10^3/uL (1-3.4); LYMPHOCYTES % (AUTO) 4 % (22-44); MD NO; MEAN CORPUSCULAR HEMOGLOBIN 31.6 pg (27.5-34.5); MEAN CORPUSCULAR HGB CONC 33.8 g/dL (33.2-36.2); MEAN CORPUSCULAR VOLUME 93.6 fL (81-97); MEAN PLATELET VOLUME 7.7 fL (7.4-10.4); MONOCYTES # (AUTO) 0.84 x10^3/uL (0.2-0.8); MONOCYTES % (AUTO) 7 % (2-9); NEUTROPHILS # (AUTO) 10.01 x10^3/uL (1.8-6.8); NEUTROPHILS % (AUTO) 87 % (42-75); PLATELET COUNT 395 x10^3/uL (130-400); RED BLOOD COUNT 2.58 x10^6/uL (4.38-5.82); RED CELL DISTRIBUTION WIDTH 14.6 % (9.4-14.8)
[2018-01-31 05:30] LABS: ANION GAP 10 mmol/L (5-15); CALCIUM 8.3 mg/dL (8.5-10.1); CHLORIDE 99 mmol/L (98-107); CREATININE 0.76 mg/dL (0.7-1.3)
[2018-01-31] MEDS: LACTOBACILLUS CHEW TABLET PO SCH ×3 (08:20→21:20)
[2018-01-31] MEDS: METRONIDAZOLE PMX 500MG/100ML 100 ML IV SCH ×2 (08:20→16:27)
[2018-01-31] MEDS: SODIUM CHLORIDE 0.9% 1,000 ML IV SCH ×2 (08:20→21:20)
[2018-01-31] MEDS: HYDROmorphone 2 MG/ML, 1ML IV PRN (08:29)
[2018-01-31 08:30] VITALS: BP 148/82
[2018-01-31] MEDS ORDERED: PROPOFOL 10 MG/ML, 20ML ONE (13:41)
[2018-01-31] MEDS ORDERED: KETOROLAC 30 MG/1 ML ONE (13:41)
[2018-01-31] MEDS ORDERED: MIDAZOLAM 1 MG/ML, 2ML ONE (13:44)
[2018-01-31 14:30] VITALS: BP 147/85
[2018-01-31 20:00] VITALS: BP 150/81
[2018-01-31] MEDS: ENOXAPARIN 40 MG/0.4 ML SQ SCH (21:35)
[2018-01-31] MEDS: ONDANSETRON 2MG/ML, 2ML IVPush PRN (23:23)
[2018-02-01] MEDS: HYDROmorphone 2 MG/ML, 1ML IV PRN (00:57)
[2018-02-01] MEDS: METRONIDAZOLE PMX 500MG/100ML 100 ML IV SCH ×2 (01:01→08:31)
[2018-02-01 02:00] VITALS: BP 150/84
[2018-02-01] MEDS: VANCOMYCIN 50 MG/ML ORAL SUSP PO SCH ×4 (02:27→21:29)
[2018-02-01] MEDS: ACETAMINOPHEN 325 MG TABLET PO PRN ×6 (02:27→23:11)
[2018-02-01] MEDS: SODIUM CHLORIDE 0.9% 1,000 ML IV SCH (04:00)
[2018-02-01 05:46] LABS: ANION GAP 9 mmol/L (5-15); CALCIUM 8.4 mg/dL (8.5-10.1); CHLORIDE 101 mmol/L (98-107)
[2018-02-01 05:47] LABS: CREATININE 0.82 mg/dL (0.7-1.3)
[2018-02-01 05:53] LABS: MEAN CORPUSCULAR HEMOGLOBIN 31.7 pg (27.5-34.5); MEAN CORPUSCULAR HGB CONC 34.2 g/dL (33.2-36.2); MEAN CORPUSCULAR VOLUME 92.7 fL (81-97); MEAN PLATELET VOLUME 7.7 fL (7.4-10.4); PLATELET COUNT 436 x10^3/uL (130-400); RED BLOOD COUNT 2.54 x10^6/uL (4.38-5.82); RED CELL DISTRIBUTION WIDTH 14.6 % (9.4-14.8)
[2018-02-01 06:13] LABS: BASOPHILS # (AUTO) 0.01 x10^3/uL (0-0.1); BASOPHILS % (AUTO) 0 % (0-1); EOSINOPHILS # (AUTO) 0.23 x10^3/uL (0-0.4); EOSINOPHILS % (AUTO) 3 % (1-7); LYMPHOCYTES # (AUTO) 0.64 x10^3/uL (1-3.4); LYMPHOCYTES % (AUTO) 9 % (22-44); MD SCAN; MONOCYTES # (AUTO) 0.57 x10^3/uL (0.2-0.8); MONOCYTES % (AUTO) 9 % (2-9); NEUTROPHILS # (AUTO) 5.33 x10^3/uL (1.8-6.8); NEUTROPHILS % (AUTO) 79 % (42-75)
[2018-02-01] MEDS ORDERED: SODIUM CHLORIDE 0.9% 1,000 ML IV SCH (07:30)
[2018-02-01] MEDS: LACTOBACILLUS CHEW TABLET PO SCH ×3 (08:31→21:29)
[2018-02-01 09:03] VITALS: BP 131/74
[2018-02-01] MEDS: FERROUS SULFATE 325 MG TABLET PO SCH ×2 (11:46→16:51)
[2018-02-01 14:16] VITALS: BP 136/79
[2018-02-01] MEDS: metroNIDAZOLE 500 MG TABLET PO SCH ×2 (16:18→21:29)
[2018-02-01 21:27] VITALS: BP 146/82
[2018-02-01] MEDS: ONDANSETRON 2MG/ML, 2ML IVPush PRN (23:16)
[2018-02-02] MEDS: HYDROmorphone 2 MG/ML, 1ML IV PRN (01:23)
[2018-02-02] MEDS: VANCOMYCIN 50 MG/ML ORAL SUSP PO SCH ×4 (02:53→20:56)
[2018-02-02 02:55] VITALS: BP 138/77
[2018-02-02 05:31] LABS: BASOPHILS # (AUTO) 0.02 x10^3/uL (0-0.1); BASOPHILS % (AUTO) 0 % (0-1); EOSINOPHILS # (AUTO) 0.22 x10^3/uL (0-0.4); EOSINOPHILS % (AUTO) 3 % (1-7); LYMPHOCYTES # (AUTO) 0.61 x10^3/uL (1-3.4); LYMPHOCYTES % (AUTO) 9 % (22-44); MD NO; MEAN CORPUSCULAR HEMOGLOBIN 30.8 pg (27.5-34.5); MEAN CORPUSCULAR HGB CONC 33.5 g/dL (33.2-36.2); MEAN CORPUSCULAR VOLUME 91.9 fL (81-97); MEAN PLATELET VOLUME 7.3 fL (7.4-10.4); MONOCYTES # (AUTO) 0.63 x10^3/uL (0.2-0.8); MONOCYTES % (AUTO) 9 % (2-9); NEUTROPHILS # (AUTO) 5.22 x10^3/uL (1.8-6.8); NEUTROPHILS % (AUTO) 78 % (42-75); PLATELET COUNT 492 x10^3/uL (130-400); RED BLOOD COUNT 2.61 x10^6/uL (4.38-5.82); RED CELL DISTRIBUTION WIDTH 15.1 % (9.4-14.8)
[2018-02-02 05:46] LABS: ANION GAP 8 mmol/L (5-15); CALCIUM 8.6 mg/dL (8.5-10.1); CHLORIDE 101 mmol/L (98-107); CREATININE 0.75 mg/dL (0.7-1.3)
[2018-02-02] MEDS: ACETAMINOPHEN 325 MG TABLET PO PRN ×3 (06:30→17:51)
[2018-02-02 07:35] VITALS: BP 152/89
[2018-02-02] MEDS: LACTOBACILLUS CHEW TABLET PO SCH ×3 (07:53→20:56)
[2018-02-02] MEDS: FERROUS SULFATE 325 MG TABLET PO SCH ×3 (07:53→16:24)
[2018-02-02] MEDS: metroNIDAZOLE 500 MG TABLET PO SCH ×3 (07:53→20:56)
[2018-02-02] MEDS: VALSARTAN 160 MG TABLET PO SCH (11:58)
[2018-02-02 14:15] VITALS: BP 152/83
[2018-02-02 20:29] VITALS: BP 153/88
[2018-02-02] MEDS: OXYcodone/APAP 5/325MG TABLET PO PRN ×2 (22:11→22:40)
[2018-02-03 01:46] VITALS: BP 142/89
[2018-02-03] MEDS: VANCOMYCIN 50 MG/ML ORAL SUSP PO SCH ×2 (02:27→08:00)
[2018-02-03] MEDS: OXYcodone/APAP 5/325MG TABLET PO PRN (02:32)
[2018-02-03 07:54] VITALS: BP 154/88
[2018-02-03] MEDS: metroNIDAZOLE 500 MG TABLET PO SCH (07:59)
[2018-02-03] MEDS: LACTOBACILLUS CHEW TABLET PO SCH (07:59)
[2018-02-03] MEDS: FERROUS SULFATE 325 MG TABLET PO SCH (08:00)
[2018-02-03] MEDS: VALSARTAN 160 MG TABLET PO SCH (08:00)
[2018-02-03] MEDS: ACETAMINOPHEN 325 MG TABLET PO PRN (08:08)
[2018-02-03 09:34] VITALS: BP 139/83
[2018-02-03] MEDS ORDERED: VALS160T3 PO (10:24)
[2018-02-03] MEDS ORDERED: VANC1VIA3 PO (10:24)
[2018-02-03] MEDS ORDERED: FERR-51 PO (10:24)
[2018-02-03] MEDS ORDERED: OXYC1TAB7 PO (10:24)
[2018-02-04] MEDS ORDERED: ATORVASTATIN 20 MG TABLET PO SCH (09:00)
== END 2018-02-03 10:55 | disposition home or self-care (01) | DRG 372 ==
LOC: ED 21:28 → EDIP 21:36 → 3NE 23:05 → CCU 01-29 00:10 → 4NOR 01-29 10:51
PROVIDERS: ADMIT Colon & Rectal Surgery; ATTEND Colon & Rectal Surgery
PROC: 5A09357 Assistance with Respiratory Ventilation, Less than 24 Consecutive Hours, Continuous Positive Airway Pressure (ICD-10-PCS; principal; 2018-01-30)
PROC: 0DBN8ZZ Excision of Sigmoid Colon, Via Natural or Artificial Opening Endoscopic (ICD-10-PCS; 2018-01-31)
DX: A04.72 Enterocolitis due to Clostridium difficile, not specified as recurrent (principal); C18.9 Malignant neoplasm of colon, unspecified; E87.1 Hypo-osmolality and hyponatremia; C79.9 Secondary malignant neoplasm of unspecified site; K56.699 Other intestinal obstruction unspecified as to partial versus complete obstruction; K63.5 Polyp of colon; D50.9 Iron deficiency anemia, unspecified; E78.00 Pure hypercholesterolemia, unspecified; E78.5 Hyperlipidemia, unspecified; E86.0 Dehydration; G89.18 Other acute postprocedural pain; I10 Essential (primary) hypertension; M79.81 Nontraumatic hematoma of soft tissue; R56.9 Unspecified convulsions; Z79.899 Other long term (current) drug therapy; Z80.1 Family history of malignant neoplasm of trachea, bronchus and lung; Z90.49 Acquired absence of other specified parts of digestive tract
CPT/HCPCS: 36415; 74018; 87046; 87427; 99285; J3370; 71045; 74176; 80048; 80053; 80061; 80069; 81003; 82436; 83605; 83735; 83880; 83930; 83935; 84133; 84300; 84443; 84550; 85025; 87040; 87081; 87324; 88305; 89055; 96361; 96365; 96372; 96375; 96376; J0696; J1170; J1650; J1885; J2185; J2250; J2405; J2704; J3480; J0500; J7030

== ENCOUNTER → 2018-01-28 | Outpatient (CLI) | payer OTHER ==
[~2018-01-28] MED LIST changes: +ACET325T14 PO; +OMNIPAQUE 350 MG/ML, 100ML BOTTLE ONE; +OXYC-302 PO
== END | disposition home or self-care (01) ==
LOC: RAD 13:39
PROVIDERS: ATTEND Colon & Rectal Surgery
DX: C18.9 Malignant neoplasm of colon, unspecified (principal); J98.11 Atelectasis; S30.1XXA Contusion of abdominal wall, initial encounter; X58.XXXA Exposure to other specified factors, initial encounter; Y93.89 Activity, other specified; Y92.89 Other specified places as the place of occurrence of the external cause; Y99.8 Other external cause status
CPT/HCPCS: 74177; Q9967

== ENCOUNTER 2018-02-17 18:13 | Emergency (ER) | payer OTHER ==
[~2018-02-17] VITALS: Ht 175.3 cm; Wt 80.4 kg
[~2018-02-17 18:13] MED LIST changes: +ACET325T14 PO; +FERR-51 PO; +OXYC1TAB7 PO; +VALS160T3 PO; +VANC1VIA3 PO
[2018-02-17] MEDS ORDERED: ONDANSETRON 2MG/ML, 2ML ONE (18:56)
[2018-02-17] MEDS ORDERED: HYDROmorphone 2 MG/ML, 1ML ONE (18:56)
[2018-02-17] MEDS ORDERED: SODIUM CHLORIDE 0.9% 1,000ML IVBOLUS ONE (19:00)
[2018-02-17] MEDS ORDERED: SODIUM CHLORIDE FLUSH 10ML SYR IVF ONE (19:00)
[2018-02-17] MEDS ORDERED: HYDROmorphone 2 MG/ML, 1ML IVPush PRN (19:00)
[2018-02-17] MEDS ORDERED: ONDANSETRON 2MG/ML, 2ML IVPush ONE (19:00)
[2018-02-17 19:05] LABS: BASOPHILS # (AUTO) 0.01 x10^3/uL (0-0.1); BASOPHILS % (AUTO) 0 % (0-1); EOSINOPHILS # (AUTO) 0.06 x10^3/uL (0-0.4); EOSINOPHILS % (AUTO) 1 % (1-7); LYMPHOCYTES # (AUTO) 0.69 x10^3/uL (1-3.4); LYMPHOCYTES % (AUTO) 7 % (22-44); MD NO; MEAN CORPUSCULAR HEMOGLOBIN 31.1 pg (27.5-34.5); MEAN CORPUSCULAR HGB CONC 33.7 g/dL (33.2-36.2); MEAN CORPUSCULAR VOLUME 92.1 fL (81-97); MEAN PLATELET VOLUME 7.5 fL (7.4-10.4); MONOCYTES # (AUTO) 0.73 x10^3/uL (0.2-0.8); MONOCYTES % (AUTO) 7 % (2-9); NEUTROPHILS % (AUTO) 85 % (42-75); PLATELET COUNT 491 x10^3/uL (130-400); RED BLOOD COUNT 3.82 x10^6/uL (4.38-5.82)
[2018-02-17 19:16] LABS: ALANINE AMINOTRANSFERASE 47 U/L (12-78); ALBUMIN 3.3 g/dL (3.4-5.0); ANION GAP 8 mmol/L (5-15); CALCIUM 9.5 mg/dL (8.5-10.1); CHLORIDE 99 mmol/L (98-107); CREATININE 0.98 mg/dL (0.7-1.3)
[2018-02-17 19:18] LABS: ALKALINE PHOSPHATASE 125 U/L (45-117); BILIRUBIN,TOTAL 1.3 mg/dL (0.2-1.0); TOTAL PROTEIN 7.7 g/dL (6.4-8.2)
[2018-02-17 19:23] LABS: INTERNATIONAL NORMALIZED RATIO 1.1 (0.93-1.1); PROTHROMBIN TIME 11.3 Seconds (9.6-11.5)
[2018-02-17 19:27] LABS: CLOSTRIDIUM DIFFICILE ANTIGEN NEGATIVE; CLOSTRIDIUM DIFFICILE TOXIN NEGATIVE (Negative)
[2018-02-17 20:53] VITALS: BP 141/91
== END 2018-02-17 21:02 | disposition home or self-care (01) ==
LOC: ED 19:08
DX: R10.84 Generalized abdominal pain (principal); R19.7 Diarrhea, unspecified; R50.9 Fever, unspecified; K92.1 Melena; I10 Essential (primary) hypertension; E78.5 Hyperlipidemia, unspecified; Z85.038 Personal history of other malignant neoplasm of large intestine
CPT/HCPCS: 36415; 80053; 83690; 85025; 85610; 85730; 87046; 87324; 89055; 96361; 96374; 96375; 99284; J1170; J2405; J7030

== ENCOUNTER → 2018-12-10 | Outpatient (CLI) | payer OTHER ==
[~2018-12-10] MED LIST changes: +ATOR20TA37 PO; -ATOR20TA9 PO; +OMNIPAQUE 350 MG/ML, 100ML BOTTLE ONE
== END | disposition home or self-care (01) ==
LOC: CFH 09:08
PROVIDERS: ATTEND Internal Medicine Hematology & Oncology
DX: C18.7 Malignant neoplasm of sigmoid colon (principal)
CPT/HCPCS: 71260; 74177; Q9967

== ENCOUNTER → 2019-06-26 | Outpatient (CLI) | payer OTHER | END | disposition home or self-care (01) | LOC: CFH 11:37 | PROVIDERS: ATTEND Internal Medicine Hematology & Oncology | DX: C18.7 Malignant neoplasm of sigmoid colon (principal); J84.10 Pulmonary fibrosis, unspecified | CPT/HCPCS: 71260; 74177; 82565; Q9967 ==

== ENCOUNTER → 2020-05-19 | Outpatient (CLI) | payer OTHER | END | disposition home or self-care (01) | LOC: CFH 08:55 | PROVIDERS: ATTEND Internal Medicine Hematology & Oncology | DX: C18.7 Malignant neoplasm of sigmoid colon (principal); M51.36 Other intervertebral disc degeneration, lumbar region | CPT/HCPCS: 71260; 74177; Q9967 ==

== ENCOUNTER 2021-03-28 14:13 | Outpatient (CLI) | payer OTHER ==
[~2021-03-28 14:13] MED LIST changes: -OMNIPAQUE 350 MG/ML, 100ML BOTTLE ONE; -OXYC-302 PO; +OXYC1TAB12 PO; -VANC1VIA3 PO; +VANC1VIA36 PO
[2021-03-28] MEDS ORDERED: OMNIPAQUE 350 MG/ML, 100ML BOTTLE ONE (15:43)
== END 2021-03-28 23:59 | disposition home or self-care (01) ==
LOC: CFH 14:13
PROVIDERS: ATTEND Internal Medicine Hematology & Oncology
DX: C18.7 Malignant neoplasm of sigmoid colon (principal); Z90.49 Acquired absence of other specified parts of digestive tract
CPT/HCPCS: 71260; 74177; Q9967